=== PATIENT | male | born 1945 | race Caucasian/White ===

== ENCOUNTER → 2017-02-28 | Outpatient (CLI) | payer MEDICARE, BC, OTHER ==
[2014-06-16 12:12] VITALS: BP 117/83
== END ==
LOC: LAB 09:49
DX: E11.9 Type 2 diabetes mellitus without complications (principal); E23.0 Hypopituitarism; G47.33 Obstructive sleep apnea (adult) (pediatric); K90.89 Other intestinal malabsorption

== ENCOUNTER → 2017-03-17 | Outpatient (CLI) | payer MEDICARE, BC, OTHER ==
[2014-06-16 12:12] VITALS: BP 117/83
== END ==
LOC: LAB 13:49
DX: E11.9 Type 2 diabetes mellitus without complications (principal); E23.0 Hypopituitarism; G47.33 Obstructive sleep apnea (adult) (pediatric); K90.89 Other intestinal malabsorption

== ENCOUNTER → 2017-06-23 | Outpatient (CLI) | payer MEDICARE, BC, OTHER ==
[2014-06-16 12:12] VITALS: BP 117/83
[2017-06-23 14:12] LABS: EOS # 0.3 (0.04-0.40); HEMATOCRIT 39.6 % (42.0-52.0); HEMOGLOBIN 12.7 g/dL (13.5-18.0); LYMPH# 1.3 (1.50-4.00); MEAN CELL VOLUME 86 fl (78-100); MEAN CORPUSCULAR HEMOGLOBIN 28 pg (27-31); MEAN CORPUSCULAR HGB CONC 32 g/dL (33-37); MEAN PLATELET VOLUME 8.7 fl (7.4-10.4); MONO # 0.5 (0.20-0.80); PLATELET COUNT 293 K/mm3 (130-400); WHITE BLOOD COUNT 6.2 K/mm3 (4.8-10.8)
[2017-06-23 14:41] LABS: EOS % 5.5 % (0.0-4.0)
[2017-06-23 14:48] LABS: ALBUMIN 4.1 g/dL (3.5-5.0); BUN/CREATININE RATIO 19.1 (6.0-26.0); CALCIUM 9.8 mg/dL (8.4-10.2); POTASSIUM 4.4 mmol/L (3.6-5.0); TOTAL BILIRUBIN 0.2 mg/dL (0.2-1.3); TOTAL PROTEIN 7.3 g/dL (6.3-8.2)
== END ==
LOC: LAB 14:00
PROVIDERS: Internal Medicine
DX: E11.9 Type 2 diabetes mellitus without complications (principal); G47.33 Obstructive sleep apnea (adult) (pediatric); E78.2 Mixed hyperlipidemia

== ENCOUNTER → 2017-09-23 | Outpatient (CLI) | payer MEDICARE, BC, OTHER ==
[2014-06-16 12:12] VITALS: BP 117/83
[2017-09-23 10:36] LABS: EOS # 0.3 (0.04-0.40); HEMATOCRIT 41.8 % (42.0-52.0); HEMOGLOBIN 13.6 g/dL (13.5-18.0); LYMPH# 1.2 (1.50-4.00); MEAN CELL VOLUME 82 fl (78-100); MEAN CORPUSCULAR HEMOGLOBIN 27 pg (27-31); MEAN CORPUSCULAR HGB CONC 33 g/dL (33-37); MEAN PLATELET VOLUME 9.5 fl (7.4-10.4); MONO # 0.5 (0.20-0.80); NEU # 2.9 (1.40-6.50); PLATELET COUNT 215 K/mm3 (130-400); RED BLOOD COUNT 5.08 M/mm3 (4.20-5.60)
[2017-09-23 10:49] LABS: ALBUMIN 3.8 g/dL (3.5-5.0); BUN/CREATININE RATIO 23.6 (6.0-26.0); CALCIUM 9.6 mg/dL (8.4-10.2); POTASSIUM 4.8 mmol/L (3.6-5.0); TOTAL BILIRUBIN 0.3 mg/dL (0.2-1.3); TOTAL PROTEIN 6.5 g/dL (6.3-8.2)
[2017-09-23 10:50] LABS: EOS % 6.2 % (0.0-4.0)
[2017-09-23 11:12] LABS: URINE APPEARANCE CLEAR; URINE BILIRUBIN NEGATIVE (NEGATIVE); URINE BLOOD NEGATIVE (NEGATIVE); URINE COLOR YELLOW; URINE KETONE NEGATIVE (NEGATIVE); URINE LEUKOCYTE ESTERASE NEGATIVE (NEGATIVE); URINE MUCUS PRESENT (NOT PRESENT); URINE NITRATE NEGATIVE (NEGATIVE); URINE PROTEIN(semi-quant) NEGATIVE (NEGATIVE); URINE UROBILINOGEN NORMAL (NORMAL); URINE WBC 0-1 /hpf (0-3)
[2017-09-23 11:52] LABS: ERYTHROCYTE SEDIMENTATION RATE 6 mm/hr (0-20)
[2017-09-23 22:54] LABS: C-REACTIVE PROTEIN XXX
== END ==
LOC: LAB 10:24
PROVIDERS: Internal Medicine
DX: E11.9 Type 2 diabetes mellitus without complications (principal); M19.90 Unspecified osteoarthritis, unspecified site; G47.33 Obstructive sleep apnea (adult) (pediatric); R68.89 Other general symptoms and signs; R61 Generalized hyperhidrosis

== ENCOUNTER → 2017-12-26 | Outpatient (CLI) | payer MEDICARE, BC, OTHER ==
[2014-06-16 12:12] VITALS: BP 117/83
[2017-12-26 08:10] LABS: EOS # 0.3 (0.04-0.40); HEMATOCRIT 42.7 % (42.0-52.0); HEMOGLOBIN 14.6 g/dL (13.5-18.0); LYMPH# 1.3 (1.50-4.00); MEAN CELL VOLUME 86 fl (78-100); MEAN CORPUSCULAR HEMOGLOBIN 30 pg (27-31); MEAN CORPUSCULAR HGB CONC 34 g/dL (33-37); MEAN PLATELET VOLUME 9.8 fl (7.4-10.4); MONO # 0.5 (0.20-0.80); NEU # 2.9 (1.40-6.50); PLATELET COUNT 204 K/mm3 (130-400); RED BLOOD COUNT 4.94 M/mm3 (4.20-5.60); RED CELL DISTRIBUTION WIDTH 14.5 % (11.5-14.5); WHITE BLOOD COUNT 5.1 K/mm3 (4.8-10.8)
[2017-12-26 08:12] LABS: EOS % 5.3 % (0.0-4.0)
[2017-12-26 08:26] LABS: BUN/CREATININE RATIO 24.4 (6.0-26.0); CALCIUM 9.9 mg/dL (8.4-10.2); POTASSIUM 4.4 mmol/L (3.6-5.0); TOTAL BILIRUBIN 0.4 mg/dL (0.2-1.3); TOTAL PROTEIN 6.5 g/dL (6.3-8.2)
== END ==
LOC: LAB 07:56
PROVIDERS: Internal Medicine
DX: E11.9 Type 2 diabetes mellitus without complications (principal); R20.2 Paresthesia of skin; E78.5 Hyperlipidemia, unspecified

== ENCOUNTER → 2019-03-25 | Outpatient (CLI) | payer MEDICARE, BC, OTHER ==
[2014-06-16 12:12] VITALS: BP 117/83
== END ==
LOC: VAS 16:32 → RAD 17:00
DX: R06.02 Shortness of breath (principal)

== ENCOUNTER → 2019-11-29 | Outpatient (CLI) | payer MEDICARE, BC, OTHER ==
[2014-06-16 12:12] VITALS: BP 117/83
[2019-11-29 10:37] LABS: EOS # 0.4 (0.04-0.40); HEMATOCRIT 43.7 % (42.0-52.0); HEMOGLOBIN 15.1 g/dL (13.5-18.0); LYMPH# 1.5 (1.50-4.00); MEAN CELL VOLUME 90 fl (78-100); MEAN CORPUSCULAR HEMOGLOBIN 31 pg (27-31); MEAN CORPUSCULAR HGB CONC 35 g/dL (33-37); MONO # 0.6 (0.20-0.80); NEU # 3.5 (1.40-6.50); PLATELET COUNT 190 K/mm3 (130-400); RED BLOOD COUNT 4.84 M/mm3 (4.20-5.60); RED CELL DISTRIBUTION WIDTH 13.1 % (11.5-14.5)
[2019-11-29 10:42] LABS: POTASSIUM 4.3 mmol/L (3.5-5.1)
[2019-11-29 10:43] LABS: ALBUMIN 3.9 g/dL (3.4-4.8)
[2019-11-29 10:44] LABS: CALCIUM 9.3 mg/dL (8.3-10.5); EOS % 6.7 % (0.0-4.0)
[2019-11-29 10:45] LABS: TOTAL PROTEIN 6.3 g/dL (6.2-8.1)
[2019-11-29 10:47] LABS: TOTAL BILIRUBIN 0.3 mg/dL (0.2-1.2)
== END ==
LOC: LAB 10:01
PROVIDERS: Internal Medicine
DX: Z12.5 Encounter for screening for malignant neoplasm of prostate (principal); E11.9 Type 2 diabetes mellitus without complications; E78.5 Hyperlipidemia, unspecified; R20.2 Paresthesia of skin

== ENCOUNTER → 2020-04-06 | Outpatient (CLI) | payer MEDICARE, BC, OTHER ==
[2014-06-16 12:12] VITALS: BP 117/83
[2020-04-06 08:42] LABS: BASO # 0.1 (0.02-0.10); EOS # 0.3 (0.04-0.40); HEMATOCRIT 44.9 % (42.0-52.0); HEMOGLOBIN 15.4 g/dL (13.5-18.0); LYMPH# 1.5 (1.50-4.00); MEAN CELL VOLUME 90 fl (78-100); MEAN CORPUSCULAR HEMOGLOBIN 31 pg (27-31); MEAN CORPUSCULAR HGB CONC 34 g/dL (33-37); MEAN PLATELET VOLUME 9.6 fl (7.4-10.4); MONO # 0.5 (0.20-0.80); NEU # 2.9 (1.40-6.50); PLATELET COUNT 194 K/mm3 (130-400); RED BLOOD COUNT 4.98 M/mm3 (4.20-5.60); RED CELL DISTRIBUTION WIDTH 13.2 % (11.5-14.5); WHITE BLOOD COUNT 5.3 K/mm3 (4.8-10.8)
[2020-04-06 08:43] LABS: ALBUMIN 3.9 g/dL (3.4-4.8); POTASSIUM 4.5 mmol/L (3.5-5.1)
[2020-04-06 08:44] LABS: CALCIUM 9.5 mg/dL (8.3-10.5)
[2020-04-06 08:45] LABS: TOTAL PROTEIN 6.7 g/dL (6.2-8.1)
[2020-04-06 08:47] LABS: EOS % 5.7 % (0.0-4.0); TOTAL BILIRUBIN 0.5 mg/dL (0.2-1.2)
== END ==
LOC: LAB 08:18
PROVIDERS: Internal Medicine
DX: E11.9 Type 2 diabetes mellitus without complications (principal); E78.5 Hyperlipidemia, unspecified; R20.2 Paresthesia of skin

== ENCOUNTER → 2020-06-20 | Outpatient (CLI) | payer MEDICARE, BC, OTHER ==
[2014-06-16 12:12] VITALS: BP 117/83
[2020-06-20 10:47] LABS: EOS # 0.3 (0.04-0.40); EOS % 4.9 % (0.0-4.0); HEMATOCRIT 45.3 % (42.0-52.0); HEMOGLOBIN 15.2 g/dL (13.5-18.0); LYMPH# 1.3 (1.50-4.00); MEAN CELL VOLUME 90 fl (78-100); MEAN CORPUSCULAR HEMOGLOBIN 30 pg (27-31); MEAN CORPUSCULAR HGB CONC 34 g/dL (33-37); MEAN PLATELET VOLUME 9.9 fl (7.4-10.4); MONO # 0.7 (0.20-0.80); NEU # 4.4 (1.40-6.50); PLATELET COUNT 181 K/mm3 (130-400); RED BLOOD COUNT 5.04 M/mm3 (4.20-5.60); RED CELL DISTRIBUTION WIDTH 13.1 % (11.5-14.5); WHITE BLOOD COUNT 6.7 K/mm3 (4.8-10.8)
[2020-06-20 11:00] LABS: POTASSIUM 4.7 mmol/L (3.5-5.1)
[2020-06-20 11:01] LABS: ALBUMIN 3.9 g/dL (3.4-4.8)
[2020-06-20 11:02] LABS: CALCIUM 9.4 mg/dL (8.3-10.5)
[2020-06-20 11:05] LABS: TOTAL BILIRUBIN 0.4 mg/dL (0.2-1.2)
== END ==
LOC: LAB 10:35
PROVIDERS: Internal Medicine
DX: E11.9 Type 2 diabetes mellitus without complications (principal); E78.2 Mixed hyperlipidemia; R97.20 Elevated prostate specific antigen [PSA]; E23.0 Hypopituitarism

== ENCOUNTER → 2021-02-13 | Outpatient (CLI) | payer MEDICARE, BC, OTHER ==
[2021-02-13 16:16] LABS: BASO # 0.06 (0.02-0.10); EOS # 0.41 (0.04-0.40); EOS % 5.6 % (0.0-4.0); HEMATOCRIT 45.5 % (42.0-52.0); HEMOGLOBIN 15.4 g/dL (13.5-18.0); LYMPH# 1.83 (1.50-4.00); MEAN CELL VOLUME 91 fl (78-100); MEAN CORPUSCULAR HEMOGLOBIN 31 pg (27-31); MEAN CORPUSCULAR HGB CONC 34 g/dL (33-37); MONO # 0.58 (0.20-0.80); PLATELET COUNT 209 K/mm3 (130-400); RED BLOOD COUNT 5.03 M/mm3 (4.20-5.60); RED CELL DISTRIBUTION WIDTH 12.8 % (11.5-14.5); WHITE BLOOD COUNT 7.3 K/mm3 (4.8-10.8)
[2021-02-13 16:23] LABS: POTASSIUM 4.6 mmol/L (3.5-5.1)
[2021-02-13 16:25] LABS: CALCIUM 10.9 mg/dL (8.3-10.5)
[2021-02-13 16:26] LABS: ALBUMIN 4.1 g/dL (3.4-4.8)
[2021-02-13 16:27] LABS: TOTAL PROTEIN 6.8 g/dL (6.2-8.1)
[2021-02-13 16:29] LABS: TOTAL BILIRUBIN 0.6 mg/dL (0.2-1.2)
[2021-02-13 16:36] LABS: MAGNESIUM 1.93 mg/dL (1.60-2.60)
[2021-02-13 17:18] LABS: ERYTHROCYTE SEDIMENTATION RATE 12 mm/hr (0-20)
== END ==
LOC: LAB 16:02
PROVIDERS: Internal Medicine
DX: E11.9 Type 2 diabetes mellitus without complications (principal); E78.2 Mixed hyperlipidemia; K90.9 Intestinal malabsorption, unspecified

== ENCOUNTER → 2021-02-15 | Outpatient (CLI) | payer MEDICARE, BC, OTHER | LOC: RAD 07:40 | DX: M48.062 Spinal stenosis, lumbar region with neurogenic claudication (principal); M47.816 Spondylosis without myelopathy or radiculopathy, lumbar region; M62.58 Muscle wasting and atrophy, not elsewhere classified, other site ==